=== PATIENT | female | born 1940 | race Caucasian/White ===

== ENCOUNTER 2023-09-14 12:33 | Inpatient (IN) | payer OTHER ==
[~2023-09-14] VITALS: Ht 170.2 cm; Wt 103.0 kg
[2023-09-14 13:17] LABS: BASOPHILS # (AUTO) 0.1 K/uL (0.0-0.2); BASOPHILS % (AUTO) 0.5 % (0.0-2.0); EOSINOPHILS # (AUTO) 0.1 K/uL (0.0-0.7); EOSINOPHILS % (AUTO) 0.5 % (0.0-6.0); HEMATOCRIT 55 % (33-45); HEMOGLOBIN 17.7 g/dL (11.5-14.8); LYMPHOCYTES # (AUTO) 2.6 K/uL (0.8-4.8); LYMPHOCYTES % (AUTO) 14.1 % (20.0-44.0); MEAN CORPUSCULAR HEMOGLOBIN 28 PG (26.0-33.0); MEAN CORPUSCULAR HGB CONC 32 g/dl (31.0-36.0); MEAN CORPUSCULAR VOLUME 85 fL (82-100); MONOCYTES # (AUTO) 1.2 K/uL (0.1-1.30); MONOCYTES % (AUTO) 6.5 % (2.0-12.0); NEUTROPHILS # (AUTO) 14.4 K/uL (1.8-8.9); NEUTROPHILS % (AUTO) 78.4 % (43.0-81.0); PLATELET COUNT (AUTO) 441 K/uL (150-450); RED BLOOD CELL COUNT(AUTO) 6.41 MIL/uL (4.0-5.2); WHITE BLOOD COUNT (AUTO) 18.4 K/uL (4.3-11.0)
[2023-09-14 14:05] LABS: CALCIUM, SERUM 11.1 mg/dL (8.5-10.1); CARBON DIOXIDE 31 mmol/L (21-32); CHLORIDE 108 mmol/L (98-107); CREATININE 1.2 mg/dL (0.6-1.3); GLUCOSE 149 mg/dL (74-106); POTASSIUM 3.8 mmol/L (3.5-5.1); SODIUM SERUM 153 mmol/L (136-145); UREA NITROGEN, BLOOD 75 mg/dL (7-18)
[2023-09-14 14:11] LABS: ALANINE AMINOTRANSFERASE 70 U/L (12-78); ALCOHOL, BLOOD < 3 mg/dL (0-10); ALKALINE PHOSPHATASE 103 U/L (46-116); ASPARTATE AMINOTRANSFERASE 80 U/L (15-37); BILIRUBIN,DIRECT 0.2 mg/dL (0.0-0.2); TOTAL PROTEIN, SERUM 8.2 g/dL (6.4-8.2)
[2023-09-14 14:12] LABS: SALICYLATE 0.5 mg/dL (2.8-20.0)
[2023-09-14 14:21] LABS: ACETAMINOPHEN 29 ug/ml (10-30)
[2023-09-14] MEDS: IV LR 1000 ML 1,000 ML BAG IV ONE (14:45)
[2023-09-14] MEDS ORDERED: METOPROLOL TARTRATE INJ 5 MG/5 ML AMPUL ONE ×2 (16:06→16:33)
[2023-09-14] MEDS: METOPROLOL TARTRATE INJ 5 MG/5 ML AMPUL IVP PRN (16:12)
[2023-09-14] MEDS: METOPROLOL TARTRATE INJ 5 MG/5 ML AMPUL IVP ONE (16:35)
[2023-09-14] MEDS ORDERED: METOPROLOL TARTRATE 25 MG TABLET ONE (16:52)
[2023-09-14] MEDS: METOPROLOL TARTRATE 25 MG TABLET PO ONE (16:59)
[2023-09-14 17:23] LABS: LACTIC ACID 4.8 mmol/L (0.4-2.0)
[2023-09-14 17:57] LABS: APPEARANCE,URINE Clear (CLEAR); BILIRUBIN,URINE MODERATE (NEGATIVE); BLOOD, URINE Trace-intact Ery/uL (NEGATIVE); COLOR,URINE YELLOW (YELLOW); KETONES,URINE Trace mg/dL (NEGATIVE); LEUKOCYTE ESTERASE ,URINE Trace (NEGATIVE); NITRITE, URINE Negative (NEGATIVE); PH,URINE 5.5 (5.0-8.0); PROTEIN,URINE 30 mg/dl (NEGATIVE); UGLUCOSE Negative (NEGATIVE)
[2023-09-14 18:04] LABS: AMPHETAMINE, URINE NEGATIVE (NEGATIVE); BARBITURATE, URINE NEGATIVE (NEGATIVE); BENZODIAZEPINE, URINE NEGATIVE (NEGATIVE); CANNABINOID, URINE NEGATIVE (NEGATIVE); COCCAINE, URINE NEGATIVE (NEGATIVE); OPIATE, URINE NEGATIVE (NEGATIVE); PHENCYCLIDINE SCREEN,URINE NEGATIVE (NEGATIVE)
[2023-09-14 18:06] LABS: ADD URINE CULTURE YES; BACTERIA,URINE Few /HPF (None Seen); SQUAMOUS EPITHELIAL CELL,UR Few /HPF (None Seen)
[2023-09-14] MEDS: IV LR 500 ML IV ONE (18:15)
[2023-09-14 18:42] LABS: MAGNESIUM 2.4 mg/dL (1.8-2.4)
[2023-09-14] MEDS ORDERED: DILTIAZEM HCL 25 MG IV ONE (18:56)
[2023-09-14] MEDS: DILTIAZEM HCL 25 MG IV IV ONE (19:04)
[2023-09-14] MEDS ORDERED: CEFTRIAXONE 1GM BAG (ER ONLY) 50 ML IV ONE (19:13)
[2023-09-14] MEDS: CEFTRIAXONE 1GM BAG (ER ONLY) 1 GM/50 ML PIGGYBACK IV ONE (19:15)
[2023-09-14 19:45] VITALS: BP 128/89; TEMP 97.7; O2SAT 98
[2023-09-14] MEDS: DILTIAZEM HCL IV 125 MG in IV NS 0.9% 100 ML IV PRN (19:48)
[2023-09-14 22:00] VITALS: BP 145/75; O2SAT 96
[2023-09-14] MEDS ORDERED: IV D5W 1,000 ML IV SCH (22:00)
[2023-09-14] MEDS: IV D5/ 0.9% NACL 1,000 ML IV PRN (22:41)
[2023-09-14] MEDS: DIGOXIN INJ 0.5 MG/2 ML AMPUL IV STA (22:50)
[2023-09-14] MEDS: AMIODARONE 150 MG in IV D5W 100 ML IV ONE (22:56)
[2023-09-14] MEDS: ENOXAPARIN SODIUM 100 MG/ML DISP.SYRIN SQ ONE (22:59)
[2023-09-14 23:00] VITALS: BP 134/68; O2SAT 97
[2023-09-14] MEDS: AMIODARONE 150 MG/3 ML VIAL IV ONE ×2 (23:07)
[2023-09-14] MEDS: AMIODARONE 450 MG in IV D5W 241 ML IV PRN (23:12)
[2023-09-15] VITALS (40 sets, daily range): BP systolic 96–142; BP diastolic 45–106; TEMP 97.6–98.4; O2SAT 94–100
[2023-09-15 05:10] LABS: BASOPHILS % (AUTO) 0.3 % (0.0-2.0); EOSINOPHILS # (AUTO) 0.1 K/uL (0.0-0.7); EOSINOPHILS % (AUTO) 0.6 % (0.0-6.0); HEMATOCRIT 46 % (33-45); HEMOGLOBIN 15.2 g/dL (11.5-14.8); LYMPHOCYTES % (AUTO) 13.5 % (20.0-44.0); MEAN CORPUSCULAR HEMOGLOBIN 28 PG (26.0-33.0); MEAN CORPUSCULAR HGB CONC 33 g/dl (31.0-36.0); MEAN CORPUSCULAR VOLUME 86 fL (82-100); MONOCYTES # (AUTO) 1.3 K/uL (0.1-1.30); MONOCYTES % (AUTO) 9.2 % (2.0-12.0); NEUTROPHILS # (AUTO) 11.1 K/uL (1.8-8.9); NEUTROPHILS % (AUTO) 76.4 % (43.0-81.0); PLATELET COUNT (AUTO) 328 K/uL (150-450); RED BLOOD CELL COUNT(AUTO) 5.39 MIL/uL (4.0-5.2); RED CELL DISTRIBUTION WIDTH 14.8 % (11.5-15.0); WHITE BLOOD COUNT (AUTO) 14.5 K/uL (4.3-11.0)
[2023-09-15 05:19] LABS: CALCIUM, SERUM 9.9 mg/dL (8.5-10.1); CREATININE 1.3 mg/dL (0.6-1.3)
[2023-09-15 05:21] LABS: POTASSIUM 2.7 mmol/L (3.5-5.1)
[2023-09-15 05:34] LABS: THYROID STIMULATING HORMONE 0.02 uIU/mL (0.358-3.74)
[2023-09-15 05:36] LABS: LACTIC ACID 2.4 mmol/L (0.4-2.0)
[2023-09-15] MEDS: POTASSIUM CL. PREMIX PERIPHER. 50 ML IV SCH (05:57)
[2023-09-15] MEDS: IV NS 0.9% 250 ML IV PRN (06:22)
[2023-09-15] MEDS ORDERED: DILTIAZEM HCL IV 125 MG in IV NS 0.9% 100 ML IV PRN (09:00)
[2023-09-15] MEDS ORDERED: LOVA20TA2 PO (09:24)
[2023-09-15] MEDS ORDERED: APIX5TAB PO (09:24)
[2023-09-15] MEDS ORDERED: TRIA1TAB3 PO (09:24)
[2023-09-15] MEDS ORDERED: METO-358 PO (09:24)
[2023-09-15] MEDS ORDERED: MIRT-91 PO (09:24)
[2023-09-15] MEDS ORDERED: DICY10CA37 PO (09:24)
[2023-09-15] MEDS: Potassium Chloride 10 MEQ in IV D5W 1,000 ML IV SCH ×2 (10:58→21:16)
[2023-09-15] MEDS: Z GUARD REMEDY 4 OZ OINT TP SCH (11:00)
[2023-09-15] MEDS: DILTIAZEM HCL IV 125 MG in IV NS 0.9% 100 ML IV PRN (11:00)
[2023-09-15] MEDS ORDERED: CEFTRIAXONE 2 G in IV D5W 100 ML IV SCH (11:00)
[2023-09-15] MEDS: ENOXAPARIN SODIUM 100 MG/ML DISP.SYRIN SQ SCH (11:16)
[2023-09-15] MEDS: PIPERACILLIN /TAZOBACTAM 3.375 G in IV D5W 50 ML IV SCH (11:46)
[2023-09-15] MEDS ORDERED: CEFTRIAXONE 1 G in IV D5W 50 ML IV SCH (21:00)
[2023-09-16] VITALS (28 sets, daily range): BP systolic 91–137; BP diastolic 48–118; TEMP 98–98.5; O2SAT 93–100
[2023-09-16 04:52] LABS: BASOPHILS % (AUTO) 0.3 % (0.0-2.0); EOSINOPHILS # (AUTO) 0.2 K/uL (0.0-0.7); EOSINOPHILS % (AUTO) 1.4 % (0.0-6.0); HEMATOCRIT 46 % (33-45); HEMOGLOBIN 14.6 g/dL (11.5-14.8); LYMPHOCYTES # (AUTO) 2.1 K/uL (0.8-4.8); LYMPHOCYTES % (AUTO) 14.9 % (20.0-44.0); MEAN CORPUSCULAR HEMOGLOBIN 28 PG (26.0-33.0); MEAN CORPUSCULAR HGB CONC 32 g/dl (31.0-36.0); MEAN CORPUSCULAR VOLUME 87 fL (82-100); MONOCYTES # (AUTO) 1.3 K/uL (0.1-1.30); MONOCYTES % (AUTO) 9.8 % (2.0-12.0); NEUTROPHILS # (AUTO) 10.2 K/uL (1.8-8.9); NEUTROPHILS % (AUTO) 73.6 % (43.0-81.0); PLATELET COUNT (AUTO) 298 K/uL (150-450); RED BLOOD CELL COUNT(AUTO) 5.25 MIL/uL (4.0-5.2); RED CELL DISTRIBUTION WIDTH 14.6 % (11.5-15.0); WHITE BLOOD COUNT (AUTO) 13.8 K/uL (4.3-11.0)
[2023-09-16 05:09] LABS: CALCIUM, SERUM 9.6 mg/dL (8.5-10.1); CARBON DIOXIDE 28 mmol/L (21-32); CHLORIDE 110 mmol/L (98-107); CREATININE 1.6 mg/dL (0.6-1.3); GLUCOSE 187 mg/dL (74-106); MAGNESIUM 2.2 mg/dL (1.8-2.4); POTASSIUM 2.9 mmol/L (3.5-5.1); SODIUM SERUM 151 mmol/L (136-145); UREA NITROGEN, BLOOD 64 mg/dL (7-18)
[2023-09-16] MEDS: POTASSIUM CHLORIDE 10 MEQ/50 ML PREMIXED IVPB FOR PERIPHERAL LINE IV ONE (06:50)
[2023-09-16] MEDS ORDERED: INSULIN REGULAR, HUMAN 100 UNIT/ML 3 ML VIAL SQ PRN (08:00)
[2023-09-16] MEDS ORDERED: DEXTROSE 50%-WATER 50 ML DISP.SYRIN IV PRN (08:00)
[2023-09-16] MEDS: POTASSIUM CHLORIDE 10 MEQ/50 ML PREMIXED IVPB FOR PERIPHERAL LINE IV SCH (08:54)
[2023-09-16] MEDS: POTASSIUM CHLORIDE 20 MEQ TAB.PRT.SR PO ONE (08:55)
[2023-09-16] MEDS: METOPROLOL SUCCINATE 50 MG TAB.SR.24H PO SCH (08:55)
[2023-09-16] MEDS: APIXABAN 5 MG TABLET PO SCH ×2 (10:01→21:17)
[2023-09-16] MEDS: BLOOD SUGAR DIAGNOSTIC 1 EACH STRIP IN SCH (13:06)
[2023-09-16] MEDS: INSULIN REGULAR, HUMAN 100 UNIT/ML 3 ML VIAL SQ PRN (17:30)
[2023-09-16] MEDS: Potassium Chloride 10 MEQ in IV D5W 1,000 ML IV SCH (21:32)
[2023-09-17] VITALS (21 sets, daily range): BP systolic 86–149; BP diastolic 43–126; TEMP 97.3–98.2; O2SAT 94–100
[2023-09-17 04:25] LABS: BASOPHILS # (AUTO) 0.1 K/uL (0.0-0.2); BASOPHILS % (AUTO) 0.5 % (0.0-2.0); EOSINOPHILS # (AUTO) 0.3 K/uL (0.0-0.7); EOSINOPHILS % (AUTO) 2.5 % (0.0-6.0); HEMATOCRIT 41 % (33-45); HEMOGLOBIN 13.1 g/dL (11.5-14.8); LYMPHOCYTES # (AUTO) 1.7 K/uL (0.8-4.8); LYMPHOCYTES % (AUTO) 15.7 % (20.0-44.0); MEAN CORPUSCULAR HEMOGLOBIN 28 PG (26.0-33.0); MEAN CORPUSCULAR HGB CONC 32 g/dl (31.0-36.0); MEAN CORPUSCULAR VOLUME 87 fL (82-100); MONOCYTES % (AUTO) 9.1 % (2.0-12.0); NEUTROPHILS % (AUTO) 72.2 % (43.0-81.0); PLATELET COUNT (AUTO) 235 K/uL (150-450); RED BLOOD CELL COUNT(AUTO) 4.68 MIL/uL (4.0-5.2); RED CELL DISTRIBUTION WIDTH 14.4 % (11.5-15.0)
[2023-09-17 04:43] LABS: CALCIUM, SERUM 8.8 mg/dL (8.5-10.1); CARBON DIOXIDE 27 mmol/L (21-32); CHLORIDE 107 mmol/L (98-107); CREATININE 1.6 mg/dL (0.6-1.3); GLUCOSE 249 mg/dL (74-106); POTASSIUM 3.5 mmol/L (3.5-5.1); SODIUM SERUM 142 mmol/L (136-145); UREA NITROGEN, BLOOD 51 mg/dL (7-18)
[2023-09-17] MEDS: Potassium Chloride 10 MEQ in IV NS 0.9% 1,000 ML IV SCH (08:30)
[2023-09-17] MEDS: Z GUARD REMEDY 4 OZ OINT TP PRN (08:31)
[2023-09-18] VITALS: BP 123/59; TEMP 97.6; O2SAT 97
[2023-09-18 04:00] VITALS: BP 106/68; TEMP 98.4; O2SAT 95
[2023-09-18 06:39] LABS: BASOPHILS % (AUTO) 0.4 % (0.0-2.0); EOSINOPHILS # (AUTO) 0.3 K/uL (0.0-0.7); EOSINOPHILS % (AUTO) 3.7 % (0.0-6.0); HEMATOCRIT 28 % (33-45); HEMOGLOBIN 9.3 g/dL (11.5-14.8); LYMPHOCYTES # (AUTO) 1.5 K/uL (0.8-4.8); LYMPHOCYTES % (AUTO) 16.9 % (20.0-44.0); MEAN CORPUSCULAR HEMOGLOBIN 29 PG (26.0-33.0); MEAN CORPUSCULAR HGB CONC 33 g/dl (31.0-36.0); MEAN CORPUSCULAR VOLUME 88 fL (82-100); MONOCYTES # (AUTO) 0.7 K/uL (0.1-1.30); MONOCYTES % (AUTO) 8.5 % (2.0-12.0); NEUTROPHILS # (AUTO) 6.1 K/uL (1.8-8.9); NEUTROPHILS % (AUTO) 70.5 % (43.0-81.0); PLATELET COUNT (AUTO) 145 K/uL (150-450); RED BLOOD CELL COUNT(AUTO) 3.24 MIL/uL (4.0-5.2); RED CELL DISTRIBUTION WIDTH 14.2 % (11.5-15.0); WHITE BLOOD COUNT (AUTO) 8.7 K/uL (4.3-11.0)
[2023-09-18 08:00] VITALS: BP 118/97; TEMP 97.5; O2SAT 95
[2023-09-18 09:04] LABS: CALCIUM, SERUM 8.9 mg/dL (8.5-10.1); CARBON DIOXIDE 31 mmol/L (21-32); CHLORIDE 106 mmol/L (98-107); CREATININE 1.4 mg/dL (0.6-1.3); GLUCOSE 139 mg/dL (74-106); MAGNESIUM 1.9 mg/dL (1.8-2.4); POTASSIUM 3.4 mmol/L (3.5-5.1); SODIUM SERUM 144 mmol/L (136-145); UREA NITROGEN, BLOOD 37 mg/dL (7-18)
[2023-09-18] MEDS ORDERED: LEVO250S3 PO (09:26)
[2023-09-18] MEDS ORDERED: METO100T14 PO (09:26)
[2023-09-18] MEDS: LINAGLIPTIN 5 MG TABLET PO SCH (10:03)
[2023-09-18] MEDS: POTASSIUM CHLORIDE 20 MEQ TAB.PRT.SR PO ONE (10:03)
[2023-09-18] MEDS: ZOSYN IVPB 2.25 G in IV D5W 50ml IV SCH (11:33)
[2023-09-18 12:00] VITALS: BP 127/99; TEMP 97.3; O2SAT 96
[2023-09-18 16:00] VITALS: BP 116/93; TEMP 97.3; O2SAT 96
[2023-09-18] MEDS ORDERED: Potassium Chloride 10 MEQ in IV NS 0.9% 1,000 ML IV SCH (21:31)
== END 2023-09-18 18:23 | DRG 871 ==
LOC: ER 12:35 → ICU 20:43 → TELE1 09-17 15:47
PROVIDERS: ADMIT Internal Medicine; ATTEND Internal Medicine
DX: A41.9 Sepsis, unspecified organism (principal); G93.41 Metabolic encephalopathy; E87.0 Hyperosmolality and hypernatremia; N39.0 Urinary tract infection, site not specified; I48.20 Chronic atrial fibrillation, unspecified; E87.20 Acidosis, unspecified; N17.9 Acute kidney failure, unspecified; E86.0 Dehydration; E87.6 Hypokalemia; E11.9 Type 2 diabetes mellitus without complications; I10 Essential (primary) hypertension; E78.5 Hyperlipidemia, unspecified; R62.7 Adult failure to thrive; Z79.01 Long term (current) use of anticoagulants; M25.571 Pain in right ankle and joints of right foot
CPT/HCPCS: 36415; 71045-TC; 73610-TC; 80048-TC; 80076-TC; 81001; 82962-TC; 83605-TC; 83735-TC; 83880; 84443-TC; 84484-TC; 85025-TC; 87040-TC; 87086-TC; 93307-TC; 97110-TC; 97116-TC; 97530-TC; A4223; G0378; G0480; J0282; J0696; J1160; J1650; J1815; J2543; J3480; J3490; J7030; J7042; J7050; J7060; J7070; J7120